=== PATIENT | male | born 1995 | race Caucasian/White ===

== ENCOUNTER 2017-04-26 14:14 | Emergency (ER) | payer BC ==
[2017-04-26 14:25] VITALS: BP 130/92; PULSE 84; TEMP 97.9; BMI 29.5
[2017-04-26] MEDS ORDERED: KETOROLAC TROMETHAMINE 60 MG/2 ML VIAL IM ONE ×2 (15:04→15:25)
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
[2017-04-26] MEDS ORDERED: KETOROLAC TROMETHAMINE 60 MG/2 ML VIAL ONE (15:10)
== END 2017-04-26 15:41 | disposition home or self-care (01) ==
LOC: JERFT 14:14
PROC: 3E0333Z Introduction of Anti-inflammatory into Peripheral Vein, Percutaneous Approach (ICD-10-PCS; principal; 2017-04-26)
DX: Z04.1 Encounter for examination and observation following transport accident (principal); M62.830 Muscle spasm of back; V48.1XXA Car passenger injured in noncollision transport accident in nontraffic accident, initial encounter; Y93.89 Activity, other specified; Y92.410 Unspecified street and highway as the place of occurrence of the external cause; F89 Unspecified disorder of psychological development; F90.9 Attention-deficit hyperactivity disorder, unspecified type; F95.2 Tourette's disorder; Z79.84 Long term (current) use of oral hypoglycemic drugs; Z88.8 Allergy status to other drugs, medicaments and biological substances
CPT/HCPCS: 99281-25